=== PATIENT | male | born 1950 | race Two or more races ===

== ENCOUNTER → 2020-06-06 | Outpatient (CLI) | payer MEDICARE, OTHER ==
[~2020-06-06] MED LIST: ASPI325 PO; ATEN25; DIGO.25; VERA240ERB; WARF5
== END ==
LOC: LAB SHORT 10:00 → LAB 10:00
DX: L02.11 Cutaneous abscess of neck (principal)
CPT/HCPCS: 87070; 87205

== ENCOUNTER → 2022-04-23 | Outpatient (CLI) | payer MEDICARE, OTHER ==
[2022-04-23 18:25] LABS: PSA, %Free 15.9 %
== END ==
LOC: LAB SHORT 17:12 → LAB 17:12
PROVIDERS: Internal Medicine Hematology & Oncology
DX: R97.20 Elevated prostate specific antigen [PSA] (principal)
CPT/HCPCS: 84153; 84154

== ENCOUNTER → 2022-06-28 | Outpatient (CLI) | payer MEDICARE, OTHER ==
[2022-06-28 21:18] LABS: Percent Saturation 6.1 % (20.0-50.0)
== END | disposition home or self-care (01) ==
LOC: LAB 10:36 → LAB SHORT 10:36
PROVIDERS: Internal Medicine Hematology & Oncology
DX: E53.8 Deficiency of other specified B group vitamins (principal); K92.2 Gastrointestinal hemorrhage, unspecified; D50.9 Iron deficiency anemia, unspecified
CPT/HCPCS: 82607; 82728; 82746; 83540; 83550

== ENCOUNTER → 2022-07-05 | Outpatient (CLI) | payer MEDICARE, OTHER ==
[2022-07-05 19:10] LABS: Albumin, Blood 3.3 g/dL (3.4-5.0); Albumin/Globulin Ratio 1.1 (0.8-1.8); Bilirubin, Total 0.3 mg/dL (0.1-1.0); Bun/Creatinine Ratio 20.6 (12.0-20.0); Calcium, Blood 8.7 mg/dL (8.5-10.1); Creatinine, Blood 1.02 mg/dL (0.60-1.20); Globulin, Blood 3.1 g/dL (2.2-4.0); Percent Saturation 3.5 % (20.0-50.0); Phosphorus, Blood 3.5 mg/dL (2.5-4.9); Potassium, Blood 4.5 mmol/L (3.5-5.5); Total Protein, Blood 6.4 g/dL (6.4-8.2)
== END | disposition home or self-care (01) ==
LOC: LAB SHORT 17:11
PROVIDERS: Internal Medicine Hematology & Oncology
DX: K92.2 Gastrointestinal hemorrhage, unspecified (principal); E53.8 Deficiency of other specified B group vitamins
CPT/HCPCS: 80053; 82607; 82728; 82746; 83540; 83550; 84100

== ENCOUNTER → 2023-03-25 | Outpatient (CLI) | payer MEDICARE, OTHER ==
[2023-03-25 19:46] LABS: Albumin/Globulin Ratio 1.1 (0.8-1.8); Bilirubin, Total 0.7 mg/dL (0.1-1.0); Bun/Creatinine Ratio 25.2 (12.0-20.0); Calcium, Blood 9.9 mg/dL (8.5-10.1); Creatinine, Blood 1.03 mg/dL (0.60-1.20); Globulin, Blood 3.8 g/dL (2.2-4.0); Phosphorus, Blood 3.4 mg/dL (2.5-4.9); Potassium, Blood 4.5 mmol/L (3.5-5.5); Total Protein, Blood 7.8 g/dL (6.4-8.2)
== END | disposition home or self-care (01) ==
LOC: LAB 17:09 → LAB SHORT 17:09
PROVIDERS: Internal Medicine Hematology & Oncology
DX: K92.2 Gastrointestinal hemorrhage, unspecified (principal); E53.8 Deficiency of other specified B group vitamins; R97.20 Elevated prostate specific antigen [PSA]
CPT/HCPCS: 80053; 84100; 84153; 84154

== ENCOUNTER 2023-09-20 08:17 | Day surgery (SDC) | payer MEDICARE, OTHER ==
[~2023-09-20] VITALS: Ht 172.7 cm; Wt 109.5 kg
[2023-09-20] VITALS (7 sets, daily range): BP systolic 132–181; BP diastolic 93–119
[~2023-09-20 08:17] MED LIST changes: +ALLO100 PO; +Acetaminophen325 M1 PO; +DIGOX125 MC1 PO; +DILT180 PO; +ELIQUIS5 M2 PO; +ENFAMIL DHA-ARA59 ML PO; +FAMO40 PO; +FENO48 PO; +FOLI1 PO; +GABA100 PO; +GLIP10 PO; +Isosorbide Mono30 MG PO; +Lactated Ringer's 1,000 ML IV SCH; +METO100ER PO; +MULVITA PO; +NOVOLIN N100 UNIT/2 SC; +PRALUENT P150 MG/1 M SC; +SPIR50 PO; +TORSE20 PO
[2023-09-20] MEDS ORDERED: ASPI81CH PO (08:56)
[2023-09-20] MEDS ORDERED: ZYRTEC10 M4 PO (09:02)
--- NOTE | 2023-09-20 09:17 | NUR ---
PATIENT STATES HIS WILL BE DRIVING HIM HOME.
[2023-09-20] MEDS ORDERED: propofoL 60 ML IV ONE (10:33)
--- NOTE | 2023-09-20 10:45 | NUR ---
09/20/23 1045 Sonido Myers ANESTHESIA PER DR. CASTILLO MONITOR INTACT WITH CONTINUOUS PULSE OXIMETRY, CONTINUOUS END TITAL CO2, AND INTERMITTENT BLOOD PRESSURE AND EKG
--- NOTE | 2023-09-20 12:01 | NUR ---
1150 Patient up to Ambulate independently. Gait steady. VSS AND CONSISTENT WITH PT BASELINE. PT ERVIN PO FLUIDS. PT HAS NO COMPLAINTS AND VERBALIZES READINESS TO GO HOME. Discharge instructions reviewed with patient. Patient verbalizes understanding. Copy given to patient to take home. Patient States Post-Procedure ride home has been arranged. Discharged via wheelchair to private car for ride home. PT BELONGINGS RETURNED TO PT.
== END 2023-09-20 12:02 | disposition home or self-care (01) ==
LOC: ORSCMMR 08:17 → ORD 10:00 → ORSCMMR 10:00
PROVIDERS: Surgery
PROC: 0DBH8ZX Excision of Cecum, Via Natural or Artificial Opening Endoscopic, Diagnostic (ICD-10-PCS; principal; 2023-09-20 10:00)
DX: Z12.11 Encounter for screening for malignant neoplasm of colon (principal); Z86.010 Personal history of colon polyps; D12.3 Benign neoplasm of transverse colon; D12.0 Benign neoplasm of cecum; E11.42 Type 2 diabetes mellitus with diabetic polyneuropathy; I10 Essential (primary) hypertension; I25.10 Atherosclerotic heart disease of native coronary artery without angina pectoris; G47.33 Obstructive sleep apnea (adult) (pediatric); I48.91 Unspecified atrial fibrillation; Z79.4 Long term (current) use of insulin; E66.9 Obesity, unspecified; Z68.36 Body mass index [BMI] 36.0-36.9, adult; Z79.899 Other long term (current) drug therapy
CPT/HCPCS: 82947; 88305; J2704; J7120

== ENCOUNTER 2023-09-27 10:34 | Inpatient (IN) | payer MEDICARE, OTHER ==
[~2023-09-27] VITALS: Ht 177.8 cm; Wt 107.5 kg
[~2023-09-27 10:34] MED LIST changes: +ASPI81CH PO; +CARTIA XT300 M1 PO; -DILT180 PO; +KAPSPARGO SPRI200 MG PO; -Lactated Ringer's 1,000 ML IV SCH; -METO100ER PO; +ZYRTEC10 M4 PO
[2023-09-27 11:00] LABS: BASOPHILS ABSOLUTE AUTO 0.13 K/mm3 (0.00-0.23); BASOPHILS PERCENT AUTO 1 % (0-2); EOSINOPHILS ABSOLUTE AUTO 0.26 K/mm3 (0.00-0.68); EOSINOPHILS PERCENT AUTO 2 % (0-6); Hematocrit 45.5 % (37.0-53.0); Hemoglobin 15.6 g/dL (13.5-17.5); IMMATURE GRAN ABSOLUTE AUTO 0.07 K/mm3 (0.00-0.10); IMMATURE GRAN PERCENT AUTO 1 % (0-1); LYMPHOCYTES PERCENT AUTO 17 % (21-46); MONOCYTES ABSOLUTE AUTO 1.16 K/mm3 (0.16-1.47); MONOCYTES PERCENT AUTO 8 % (4-13); Mean Corpuscular HGB 30.6 pg (26.0-34.0); Mean Corpuscular HGB Conc 34.3 g/dL (31.5-36.5); Mean Corpuscular Volume 89 fL (80-100); Mean Platelet Volume 11.4 fL (9.1-12.4); NEUTROPHILS ABSOLUTE AUTO 11.33 K/mm3 (1.96-9.15); NEUTROPHILS PERCENT AUTO 73 % (41-73); Platelet Count 277 K/mm3 (150-400); RDW Coefficient Variation 12.7 % (11.7-14.2); RDW Standard Deviation 41.8 fL (35.1-46.3); White Blood Cell Count 15.55 K/mm3 (4.00-11.30)
[2023-09-27 11:21] LABS: Albumin, Blood 3.4 g/dL (3.4-5.0); Albumin/Globulin Ratio 0.9 (0.8-1.8); Bilirubin, Total 0.6 mg/dL (0.1-1.0); Bun/Creatinine Ratio 25.2 (12.0-20.0); Calcium, Blood 9.1 mg/dL (8.5-10.1); Creatinine, Blood 0.95 mg/dL (0.60-1.20); Globulin, Blood 3.9 g/dL (2.2-4.0); Potassium, Blood 4.5 mmol/L (3.5-5.5); Total Protein, Blood 7.3 g/dL (6.4-8.2)
[2023-09-27] MEDS ORDERED: SUPER B-50 COM1 EACH PO (14:35)
[2023-09-27] MEDS ORDERED: GLIP10 PO (14:35)
[2023-09-27] MEDS ORDERED: Pantoprazole Sodium 40 MG Injection IV ONE (15:25)
[2023-09-27] MEDS ORDERED: Pantoprazole Sodium 40 MG Injection IV SCH (16:30)
[2023-09-27] MEDS ORDERED: Ondansetron HCl 2 MG / ML 2ML Vial IV PRN (16:30)
[2023-09-27] MEDS ORDERED: Acetaminophen 500 MG Tab PO PRN (16:30)
[2023-09-27 18:35] VITALS: BP 132/81
--- NOTE | 2023-09-27 18:39 | NUR ---
REPORT FROM [facility] FACULT[facility] MEMBER, PATIENT TO THE FLOOR AT 1819. PATIENT ALERT AND ORIENTED TO ALL, PLEASANT TO CARE, PATIENT REPORTS BEING ADMITTED PREVIOUSLY FOR GI BLEEDS ALSO, ROOM ORIENTATION DONE, PATIENT REPORTED UNDERSTANDING, LAB DRAWING BLOOD NOW, CLEAR LIQUID DIET, CALL LIGHT WITH IN REACH, WILL RELAY TO PM RN
[2023-09-27 19:01] LABS: Hematocrit 43.4 % (37.0-53.0); Hemoglobin 14.9 g/dL (13.5-17.5)
[2023-09-27 19:25] VITALS: BP 130/85
[2023-09-27] MEDS ORDERED: Metoprolol Succinate 50 MG TABCR PO SCH (21:00)
[2023-09-27] MEDS ORDERED: Diltiazem HCl 300 MG Cap.CD PO SCH (21:00)
[2023-09-27] MEDS ORDERED: PRALUENT P150 MG/1 M SC (21:36)
[2023-09-28 04:05] VITALS: BP 125/89
[2023-09-28 05:07] LABS: Hematocrit 39.9 % (37.0-53.0); Hemoglobin 13.7 g/dL (13.5-17.5); Mean Corpuscular HGB 30.7 pg (26.0-34.0); Mean Corpuscular HGB Conc 34.3 g/dL (31.5-36.5); Mean Corpuscular Volume 90 fL (80-100); Mean Platelet Volume 11.5 fL (9.1-12.4); Platelet Count 225 K/mm3 (150-400); RDW Coefficient Variation 12.8 % (11.7-14.2); RDW Standard Deviation 41.8 fL (35.1-46.3); Red Blood Cell Count 4.46 M/mm3 (4.30-5.90); White Blood Cell Count 13.29 K/mm3 (4.00-11.30)
[2023-09-28 05:35] LABS: Calcium, Blood 8.9 mg/dL (8.5-10.1); Creatinine, Blood 0.91 mg/dL (0.60-1.20); Potassium, Blood 4.2 mmol/L (3.5-5.5)
--- NOTE | 2023-09-28 06:06 | NUR ---
09/28/23: PATIENT ARRIVED ON UNIT YESTERDAY EVENING. PATIENT IS AAOX4 AND COOPERATIVE; TWO BOWEL MOVEMENTS OVERNIGHT WITH FIRST MOVEMENT CONTAINING BRIGHT RED BLOOD IN STOOL. PATIENT PUT ON CPAP PROTOCOL FOR NIGHTS. HEMOGLOBIN 13.7 AND WBC 13.29 AT 0423 LAB DRAWS. NO PRNS ADMINISTERED. PATIENT REMAINS STABLE.
[2023-09-28] MEDS ORDERED: Insulin Human Lispro 100 Units/ML 3ML Syringe SC SCH (07:30)
[2023-09-28 07:33] VITALS: BP 115/84
[2023-09-28] MEDS ORDERED: Isosorbide Mononitrate 30 MG TABCR PO SCH (09:00)
[2023-09-28] MEDS ORDERED: Allopurinol 100 MG Tab PO SCH (09:00)
[2023-09-28] MEDS ORDERED: Spironolactone 25 MG Tab PO SCH (09:00)
[2023-09-28 10:18] LABS: Hematocrit 37.8 % (37.0-53.0); Hemoglobin 13.1 g/dL (13.5-17.5)
[2023-09-28 15:02] LABS: Hematocrit 35.7 % (37.0-53.0); Hemoglobin 12.5 g/dL (13.5-17.5)
--- NOTE | 2023-09-28 16:11 | NUR ---
DAYSHIFT SUMMARY Patient alert & oriented x4. This morning patient had small brown BM, scant streaks of blood noted. Later patient had an episode of dark blood diarrhea, strong odor noted. Dr. Fatima consulted, plan to continue clear liquid diet, and monitor labs. Vitals stable, CBGs ac/hs low SSI. Will continue to monitor.
[2023-09-28 19:16] VITALS: BP 124/73
[2023-09-29 02:56] VITALS: BP 100/73
[2023-09-29 05:10] LABS: Hematocrit 37.3 % (37.0-53.0); Hemoglobin 12.8 g/dL (13.5-17.5)
[2023-09-29 05:52] LABS: Bun/Creatinine Ratio 13.6 (12.0-20.0); Calcium, Blood 8.9 mg/dL (8.5-10.1); Creatinine, Blood 0.81 mg/dL (0.60-1.20); Potassium, Blood 3.7 mmol/L (3.5-5.5)
--- NOTE | 2023-09-29 06:01 | NUR ---
09/29/23: PATIENT FULLY ORIENTED AND PLEASANT. PATIENT HAD NO BOWEL MOVEMENTS DURING PROBATION COUNSELOR. PATIENT ON CPAP. CONTINUING TO MONITOR HGB AND HCT AND STOOLS.
[2023-09-29 07:35] VITALS: BP 121/83
[2023-09-29 15:34] VITALS: BP 132/81
[2023-09-29] MEDS ORDERED: OMEP20ER PO (15:44)
--- NOTE | 2023-09-29 16:11 | NUR ---
DISCHARGE SUMMARY PT A/O X4, COOPERATIVE WITH CARE. ADMITTED FOR GI BLEED POST COLONOSCOPY. PT REPORTED MAROON COLORED STOOL YESTERDAY BUT NO BM'S THIS SHIFT. DIET ADVANCED FROM CLEAR LIQUID TO REGULAR AND PT IS TOLERATING WELL. NEW MEDICATIONS FAXED TO [facility]. DC'D HOME WITH .
== END 2023-09-29 16:20 | disposition home or self-care (01) | DRG 921 ==
LOC: ER 10:34 → MEDS 10:35
PROVIDERS: Emergency Medicine; Surgery; ADMIT Internal Medicine
DX: K91.840 Postprocedural hemorrhage of a digestive system organ or structure following a digestive system procedure (principal); I25.10 Atherosclerotic heart disease of native coronary artery without angina pectoris; I10 Essential (primary) hypertension; G47.33 Obstructive sleep apnea (adult) (pediatric); I48.91 Unspecified atrial fibrillation; D72.829 Elevated white blood cell count, unspecified; E11.51 Type 2 diabetes mellitus with diabetic peripheral angiopathy without gangrene; E78.00 Pure hypercholesterolemia, unspecified; M10.9 Gout, unspecified; K57.30 Diverticulosis of large intestine without perforation or abscess without bleeding; Z88.8 Allergy status to other drugs, medicaments and biological substances; Z79.82 Long term (current) use of aspirin; Z79.4 Long term (current) use of insulin; Z95.1 Presence of aortocoronary bypass graft; Z95.818 Presence of other cardiac implants and grafts; Z86.010 Personal history of colon polyps
CPT/HCPCS: 36415; 74177; 80048; 80053; 82947; 85014; 85018; 85025; 85027; 93005; 93010; 94660; 94762; 96374-59; 96376; 99285-25; A9270; C9113; G0378; Q9967

== ENCOUNTER 2025-03-16 06:43 | Day surgery (SDC) | payer MEDICARE, OTHER ==
[~2025-03-16] VITALS: Ht 175.3 cm; Wt 110.9 kg
[~2025-03-16 06:43] MED LIST changes: +ACET325 PO; +Aspir 8181 MG PO; +B-1100 M1 PO; +CETI5 PO; +FENOFIBRATE48 MG PO; -KAPSPARGO SPRI200 MG PO; +OMEP20ER PO; +SUPER B-50 COM1 EACH PO; +TOPROL XL200 MG PO; -ZYRTEC10 M4 PO
[2025-03-16 07:40] VITALS: BP 179/90
--- NOTE | 2025-03-16 08:03 | NUR ---
Pre-Op teaching done. Pt verbalizes understanding. Ambulatory in Day Surgery. History, Chart, Medications and Allergies reviewed before start of procedure. Patient confirms NPO status and agrees with scheduled surgery. Patient States Post-Procedure ride home has been arranged.
--- NOTE | 2025-03-16 08:39 | NUR ---
03/16/[address] SEE ANESTHESIA RECORDS.
[2025-03-16 09:16] VITALS: BP 158/109
[2025-03-16 09:28] VITALS: BP 138/95
--- NOTE | 2025-03-16 09:41 | NUR ---
Patient up to Ambulate independently. Gait MOSTLY steady. PT STATES HE DOES NOT USE ASSISTIVE DEVICES. PT ENCORUAGED TO USE HIS 'S WALKER UNTIL HE NEEDED TO GET INTO CAR. TOLERATING PO FLUIDS Discharge instructions reviewed with patient AND . Patient verbalizes understanding. Copy given to patient to take home. Discharged via wheelchair to private car for ride home.
== END 2025-03-16 23:00 | disposition home or self-care (01) ==
LOC: ORSCMMR 06:43 → ORD 08:15 → ORSCMMR 23:00
PROVIDERS: Surgery
PROC: 0DBL8ZX Excision of Transverse Colon, Via Natural or Artificial Opening Endoscopic, Diagnostic (ICD-10-PCS; principal; 2025-03-16 08:15)
PROC: 0DBK8ZX Excision of Ascending Colon, Via Natural or Artificial Opening Endoscopic, Diagnostic (ICD-10-PCS; principal; 2025-03-16 08:15)
PROC: 0DBH8ZX Excision of Cecum, Via Natural or Artificial Opening Endoscopic, Diagnostic (ICD-10-PCS; principal; 2025-03-16 08:15)
PROC: 0DBP8ZX Excision of Rectum, Via Natural or Artificial Opening Endoscopic, Diagnostic (ICD-10-PCS; principal; 2025-03-16 08:15)
DX: Z12.11 Encounter for screening for malignant neoplasm of colon (principal); D12.0 Benign neoplasm of cecum; D12.2 Benign neoplasm of ascending colon; D12.3 Benign neoplasm of transverse colon; K62.1 Rectal polyp; K57.30 Diverticulosis of large intestine without perforation or abscess without bleeding; K64.1 Second degree hemorrhoids; Z86.0101 Personal history of adenomatous and serrated colon polyps; E11.9 Type 2 diabetes mellitus without complications; E78.00 Pure hypercholesterolemia, unspecified; I10 Essential (primary) hypertension; I48.91 Unspecified atrial fibrillation; I25.10 Atherosclerotic heart disease of native coronary artery without angina pectoris; E66.9 Obesity, unspecified; Z68.35 Body mass index [BMI] 35.0-35.9, adult; Z79.82 Long term (current) use of aspirin; Z79.84 Long term (current) use of oral hypoglycemic drugs; Z79.4 Long term (current) use of insulin; Z79.899 Other long term (current) drug therapy
CPT/HCPCS: 82947; 88305; J2704; J7120